=== PATIENT | female | born 1975 | race Caucasian/White ===

== ENCOUNTER 2017-01-20 20:51 | Emergency (ER) | payer OTHER ==
[2017-01-20 21:05] VITALS: TEMP 98.7; BMI 32.3
[2017-01-20] MEDS ORDERED: FAMOTIDINE 20 MG/50 ML IVPB 50 ML IVPB ONE ×2 (21:38→21:53)
[2017-01-20] MEDS ORDERED: PANTOPRAZOLE SODIUM 40 MG in SODIUM CHLORIDE 100 ML IVPB ONE (21:38)
[2017-01-20] MEDS ORDERED: SODIUM CHLORIDE 1,000 ML IV STA (21:38)
--- NOTE | 2017-01-20 21:52 | PDOC ---
History of Present Illness - General Chief Complaint: Palpitations Stated Complaint: PALPITATIONS/SOB/CHEST TIGHTNESS Time Seen by Provider: 01/20/17 20:55 History Source: Patient Exam Limitations: No Limitations - History of Present Illness Initial Comments: 01/20/17 21:48 41yo Female patient w/ PmHx: GERD presents to ED c/o chest tightness, palpitations, and epigastric abd pain starting 3 nights ago. Patient states symptoms feel like heartburn and she has been taking Pepcid po prescribed by her PCP Dr. Todd. Associated SOB. Patient verbalized, " I feel like I worked out for an hr but claudia been resting." She stated she cant seem to catch her breath. Denies CP, Diff breathing, fever, rash, cough, congestion, back pain or any other complaints at this time. LNMP: Current. Presenting Symptoms: Abdominal Pain, Short of Breath, Other (Chest Tightness) Timing/Duration: reports: getting worse Severity/Quality: reports: ingestion, pressure Location: reports: epigastric, abdomen Activities at Onset: reports: rest, no specific activity Prior Chest Pain/Cardiac Workup: reports: No prior chest pain, No prior cardiac workup Modifying Factors: improves with: antacids Nitro Today/Relief: No: no nitro taken today, 0.4 mg x 1, 0.4 mg x 2, 0.4 mg x 3 , 0.4 mg x 4, provided by EMS, provided by ED, provided at home, no relief, mild relief, complete relief Aspirin Received prior to arrival (Core Measure): No: no aspirin today, unknown , 81 mg x 1, 81 mg x 2, 81 mg x 3, 81 mg x 4, 325 mg x 1, provided at home, provided by EMS, provided by ED Past History - Travel Traveled outside of the country in the last 30 days: No Close contact w/someone who was outside of country & ill: No - Past Medical History Allergies/Adverse Reactions: Allergies Allergy/AdvReac Type Severity Reaction Status Date / Time No Known Allergies Allergy Verified 01/20/17 20:59 Home Medications: Ambulatory Orders Pantoprazole Sodium [Protonix -] 40 mg PO BID #14 tablet.ec 01/21/17 - Psycho/Social/Smoking Cessation Hx Anxiety: No Suicidal Ideation: No Smoking Status: No Smoking History: Never smoked Have you smoked in the past 12 months: No Information on smoking cessation initiated: No Hx Alcohol Use: No Drug/Substance Use Hx: No Substance Use Type: None Cardiac Specific PMH - Complaint Specific PMHX Abdominal Aortic Aneurysm: No Angina: No Cardiac Arrhythmia: No Cardiac Stent: No GERD: No Myocardial Infarction: No Pacemaker: No Pulmonary Embolus: No Valvular Heart Disease: No Peripheral Vascular Disease: No Review of Systems - Review of Systems Able to Perform ROS?: Yes Is the patient limited Icelandic proficient: No Constitutional: No: Chills, Fever HEENTM: No: Nose Congestion, Throat Pain, Throat Swelling, Difficulty Swallowing , Mouth Swelling Respiratory: Yes: Shortness of Breath, SOB at Rest. No: Cough, Stridor, Wheezing, Hemoptysis Cardiac (ROS): Yes: Palpitations, Chest Tightness. No: Chest Pain, Edema, Irregular Heart Rate, Lightheadedness, Syncope ABD/GI: No: Constipated, Diarrhea, Nausea, Poor Appetite, Poor Fluid Intake, Vomiting : No: Burning, Dysuria, Flank Pain, Hematuria, Pain Musculoskeletal: No: Back Pain Integumentary: No: Bruising, Erythema, Rash Neurological: No: Headache, Paresthesia, Seizure, Tremors, Weakness, Ataxia All Other Systems: Reviewed and Negative *Physical Exam - Vital Signs Last Vital Signs Temp Pulse Resp BP Pulse Ox 98.7 F 102 H 20 132/93 100 01/20/17 20:59 01/20/17 20:59 01/20/17 20:59 01/20/17 20:59 01/20/17 20:59 - Physical Exam General Appearance: Yes: Nourished, Appropriately Dressed, Mild Distress. No: Apparent Distress HEENT: positive: EOMI, GARY, Normal ENT Inspection, Normal Voice, Symmetrical, TMs Normal, Pharynx Normal Neck: positive: Trachea midline, Normal Thyroid, Supple. negative: Rigid, Stridor, Lymphadenopathy (R), Lymphadenopathy (L) Respiratory/Chest: positive: Lungs Clear, Normal Breath Sounds. negative: Chest Tender, Respiratory Distress, Accessory Muscle Use, Labored Respiration, Rapid RR Cardiovascular: positive: Regular Rhythm, Regular Rate. negative: Edema, JVD, Murmur Gastrointestinal/Abdominal: positive: Normal Bowel Sounds, Tender, Soft, Tenderness (Epigastric). negative: Distended, Guarding, Rebound Musculoskeletal: positive: Normal Inspection. negative: CVA Tenderness, Vertebral Tenderness Extremity: positive: Normal Capillary Refill, Normal Inspection, Normal Range of Motion. negative: Swelling Integumentary: positive: Normal Color, Dry, Warm. negative: Jaundice, Cold, Clammy, Petechiae, Rash Neurologic: positive: medical safety director II-XII NML intact, Fully Oriented, Alert, Normal Mood/ Affect, Normal Response, Motor Strength 5/5 Heart Score/ECG Review - ECG Impressions Normal ECG: Yes Non-specific ST Elevation: No Ischemic Changes: No Bradycardia: No Torsades todd Pointes: No WPW: No Comment:: 01/21/17 00:23 SINUS RHYTHM WITH OCCASIONAL PAC's. ED Treatment Course - LABORATORY CBC & Chemistry Diagram: 01/20/17 21:36 01/20/17 21:36 - ADDITIONAL ORDERS Additional order review: Laboratory Results 01/20/17 01/20/17 01/20/17 21:49 21:36 21:36 D-Dimer < 200 Sodium 141 Potassium 3.7 Chloride 102 Carbon Dioxide 30 D Anion Gap 9 BUN 10 D Creatinine 0.8 D Creat Clearance w eGFR > 60 Random Glucose 104 D Calcium 8.8 Total Bilirubin 0.2 D AST 12 L ALT 25 D Alkaline Phosphatase 76 D Creatine Kinase 73 Troponin I < 0.02 Total Protein 8.0 Albumin 3.7 Total Amylase 67 Lipase 178 Urine Color Yellow Urine Appearance Clear Urine pH 6.0 Ur Specific Dix 1.019 Urine Protein Negative Urine Glucose (UA) Negative Urine Ketones Negative Urine Blood 3+ H Urine Nitrite Negative Urine Bilirubin Negative Urine Urobilinogen Negative Ur Leukocyte Esterase Trace H D Urine RBC 136 Urine WBC 6 Ur Epithelial Cells Rare Urine Mucus Rare Urine HCG, Qual Negative 01/20/17 21:36 RBC 4.27 MCV 70.6 L MCHC 32.1 RDW 18.1 H D MPV 9.1 Neutrophils % 64.2 Lymphocytes % 24.6 D Monocytes % 7.5 Eosinophils % 3.3 D Basophils % 0.4 - Medications Given in the ED: ED Medications Discontinued Medications Generic Name Dose Route Start Last Admin Trade Name Freq PRN Reason Stop Dose Admin Pantoprazole Sodium 40 mg/ 100 mls @ 200 mls/hr 01/20/17 21:38 01/20/17 22:35 Sodium Chloride IVPB 01/20/17 22:07 200 mls/hr ONCE ONE Administration Famotidine/Sodium Chloride 50 mls @ 100 mls/hr 01/20/17 21:38 01/20/17 21:58 Pepcid 20 Mg Premixed Ivpb - IVPB 01/20/17 22:07 100 mls/hr ONCE ONE Administration Sodium Chloride 1,000 mls @ 1,000 mls/hr 01/20/17 21:38 01/20/17 21:58 Normal Saline - IV 01/20/17 22:37 1,000 mls/hr ASDIR STA Administration *DC/Admit/Observation/Transfer Diagnosis at time of Disposition: Gastroesophageal reflux disease Qualifiers: Esophagitis presence: without esophagitis Qualified Code(s): K21.9 - Gastro- esophageal reflux disease without esophagitis - Discharge Dispostion Disposition: HOME Condition at time of disposition: Improved Admit: No - Prescriptions Prescriptions: Pantoprazole Sodium [Protonix -] 40 mg PO BID #14 tablet.ec - Referrals Referrals: STAFF,NOT ON [Primary Care Provider] - Brandt Bauer MD [Staff Physician] - - Patient Instructions Printed Discharge Instructions: DI for Gastroesophageal Reflux Disease (GERD), GERD Diet Additional Instructions: FOLLOW UP WITH YOUR PRIMARY CARE PROVIDER THIS WEEK FOR FURTHER EVALUATION. TAKE MEDICATIONS PRESCRIBED. AVOID ALCOHOL, SPICY FOODS, MOTRIN/IBUPROFEN, GREASY FOODS. ALSO, FOLLOW UP WITH DR. BAUER REGARDING TODAYS VISIT. Print Language: SLOVENIAN - Post Discharge Activity Work/School Note: Back to Work
[2017-01-20] MEDS ORDERED: PANTOPRAZOLE SODIUM 100 ML IVPB ONE (21:53)
[2017-01-20 22:03] LABS: BASOPHIL 0.4 % (0-2.0); EOSINOPHIL 3.3 % (0-4.5); MCH 22.6 pg (25.7-33.7); MCHC 32.1 g/dl (32.0-36.0); MEAN CELL VOLUME 70.6 fl (80-96); MEAN PLT VOLUME 9.1 fl (7.5-11.1); NEUTROPHILS 64.2 % (42.8-82.8); PLATELET COUNT 298 K/MM3 (134-434); RDW 18.1 % (11.6-15.6); WHITE BLOOD COUNT 7.3 K/mm3 (4.0-10.0)
[2017-01-20 22:06] LABS: URINE APPEARANCE CLEAR; URINE BILIRUBIN NEGATIVE (NEGATIVE); URINE BLOOD 3+ (NEGATIVE); URINE COLOR YELLOW; URINE GLUCOSE (UA) NEGATIVE (NEGATIVE); URINE KETONE NEGATIVE (NEGATIVE); URINE LEUK ESTERASE TRACE (NEGATIVE); URINE NITRITE NEGATIVE (NEGATIVE); URINE PROTEIN NEGATIVE (NEGATIVE); URINE UROBILINOGEN NEGATIVE E.U./dl (0.2-1.0)
[2017-01-20 22:10] LABS: URINE MUCUS RARE; URINE RBC 136 /hpf (0-3); URINE WBC 6 /hpf (3-5)
[2017-01-20 22:31] LABS: ALBUMIN 3.7 g/dl (3.4-5.0); AMYLASE 67 U/L (25-115); ANION GAP 9 (8-16); BILIRUBIN,TOTAL 0.2 mg/dL (0.2-1.0); CALCIUM 8.8 mg/dL (8.5-10.1); CO2 30 mmol/L (21-32); CREATININE 0.8 mg/dL (0.55-1.02); GLUCOSE,RANDOM 104 mg/dL (74-106); SGOT/AST 12 U/L (15-37); SGPT/ALT 25 U/L (12-78)
[2017-01-20 22:36] LABS: ALK PHOS 76 U/L (45-117); TROPONIN I < 0.02 ng/ml (0.00-0.05)
[2017-01-21 00:31] VITALS: BP 124/79; PULSE 94
--- NOTE | 2017-01-22 13:34 | EKG ---
Test Reason : Blood Pressure : / mmHG Vent. Rate : 081 BPM Atrial Rate : 081 BPM P-R Int : 148 ms QRS Dur : 076 ms QT Int : 368 ms P-R-T Axes : 043 033 027 degrees QTc Int : 427 ms SINUS RHYTHM WITH PREMATURE VENTRICULAR COMPLEXES WITH ABERRANT CONDUCTION OTHERWISE NORMAL ECG NO PREVIOUS ECGS AVAILABLE Confirmed by ISAIAH WHITE, GIULIA ([id number]) on 01/22/2017 1:34:24 PM Referred By: Confirmed By:GIULIA COLON MD
== END 2017-01-21 00:43 | disposition home or self-care (01) ==
LOC: JER 20:51
PROC: 3E033GC Introduction of Other Therapeutic Substance into Peripheral Vein, Percutaneous Approach (ICD-10-PCS; principal; 2017-01-20)
PROC: 3E033GC Introduction of Other Therapeutic Substance into Peripheral Vein, Percutaneous Approach (ICD-10-PCS; 2017-01-20)
DX: K21.9 Gastro-esophageal reflux disease without esophagitis (principal)
CPT/HCPCS: 36415; 80053; 81003; 81015; 82150; 82550; 83690; 84484; 84703; 85025; 85379; 93005; 93010; 96365; 96368; 99283-25

== ENCOUNTER 2018-06-09 12:28 | Day surgery (SDC) | payer OTHER ==
[2018-05-30 16:10] VITALS: BMI 34.2
[2018-06-09] MEDS ORDERED: MIDAZOLAM HCL 2 MG/2 ML SINGLE DOSE VIAL ONE (13:56)
[2018-06-09] MEDS ORDERED: fentaNYL CITRATE 250 MCG/5 ML VIAL ONE (13:56)
[2018-06-09] MEDS ORDERED: PROPOFOL 20 ML ONE (13:56)
[2018-06-09] MEDS ORDERED: ROCURONIUM BROMIDE 50 MG/5 ML VIAL ONE (13:56)
[2018-06-09] MEDS ORDERED: DEXAMETHASONE SOD PHOSPHATE 4 MG/1 ML VIAL ONE (13:57)
[2018-06-09] MEDS ORDERED: LIDOCAINE HCL/PF 2% SDV 5ML VIAL ONE (13:57)
--- NOTE | 2018-06-09 14:24 | HP ---
History & Physical Update - History History: No Change - Physical Physical: No Change - Assessment Assessment: No Change - Plan Plan: No Change (no changes since last visit on 05/26/18)
[2018-06-09] MEDS ORDERED: BUPIVACAINE HCL/PF (5 MG/ML) 30 ML VIAL IJ ONE ×2 (14:56→15:08)
[2018-06-09] MEDS ORDERED: NEOSTIGMINE METHYLSULFATE 0.5 MG/ML - 10 ML MDV ONE (15:07)
[2018-06-09] MEDS ORDERED: PHENYLEPHRINE HCL 10 MG/1 ML SINGLE DOSE VIAL ONE (15:07)
[2018-06-09] MEDS ORDERED: GLYCOPYRROLATE 0.2 MG/1 ML VIAL ONE (15:08)
[2018-06-09] MEDS ORDERED: MEPERIDINE HCL CARPU-JECT 25 MG/1 ML DISP.SYRIN ONE (15:24)
[2018-06-09] MEDS ORDERED: ACETAMINOPHEN 325 MG TABLET (FP) PO PRN (15:32)
--- NOTE | 2018-06-09 15:34 | OP ---
Operative Note - Note: Operative Date: 06/09/18 Pre-Operative Diagnosis: desires sterilization Operation: laparoscopic b/l salpingectomy Findings: normal b/l tubes and ovaries Post-Operative Diagnosis: Same as Pre-op Surgeon: Queenie Moody Sign Fabricator: Odette Mazariegos Anesthesia: General Specimens Removed: b/l fallopian tubes Estimated Blood Loss (mls): 5 Operative Report Dictated: Yes
[2018-06-09] MEDS ORDERED: KETOROLAC TROMETHAMINE 30 MG/1 ML VIAL ONE (15:36)
[2018-06-09] MEDS ORDERED: KETOROLAC TROMETHAMINE 30 MG/1 ML VIAL IM ONE (15:36)
[2018-06-09] MEDS ORDERED: oxyCODONE HCL 5 MG TABLET PO PRN (15:37)
--- NOTE | 2018-06-09 15:44 | SURG ---
Surgery Supervisor Sign Shop Note Supervisor Sign Shop: Odette Mazariegos PA-C Date of Service: 06/09/18 Diagnosis: desires sterilization Procedure: laparoscopic b/l salpingectomy I was present for the entirety of the operative procedure. For further detail, please refer to operative report. Visit type - Case Type Case Type: Scheduled - Emergency Emergency Visit: No - New patient This patient is new to me today: Yes Date on this admission: 06/09/18
[2018-06-09] MEDS ORDERED: LACTATED RINGERS SOLUTION 1,000 ML IV SCH ×2 (15:45→17:00)
[2018-06-09 15:47] VITALS: TEMP 97.9
[2018-06-09] MEDS ORDERED: ONDANSETRON 4 MG/2 ML VIAL IVPUSH PRN (16:46)
[2018-06-09] MEDS ORDERED: MEPERIDINE HCL CARPU-JECT 25 MG/1 ML DISP.SYRIN IVPUSH ONE (17:15)
[2018-06-09] MEDS ORDERED: oxyCODONE HCL 5 MG TABLET ONE (17:57)
[2018-06-09 19:27] VITALS: BP 102/66; PULSE 60
--- NOTE | 2018-06-11 14:30 | OP ---
DATE OF OPERATION: 06/09/2018 PREOPERATIVE DIAGNOSIS: Multiparity desires permanent sterilization. POSTOPERATIVE DIAGNOSIS: Multiparity desires permanent sterilization. PROCEDURE: Laparoscopic bilateral salpingectomy. SURGEON: Queenie Moody DO SPECIAL DELIVERY MAIL CARRIER: Odette Mazariegos ANESTHESIA: General. ESTIMATED BLOOD LOSS: 5 mL. COMPLICATIONS: None. SPECIMENS: Removed bilateral fallopian tubes. DISPOSITION: Stable to PACU. BRIEF HISTORY AND PROCEDURE: Patient is a 42-year-old female who has been seen in the office with desire for permanent sterilization procedure. The patient was counseled on her options and elected to undergo a laparoscopic bilateral salpingectomy. Consents for the procedure were signed in the office. The patient was admitted to [facility] on June 09, 2018. Consents were reconfirmed. The patient was then taken back to the operating room. She was given general anesthesia and placed in the dorsal lithotomy position, and a Gooden catheter was placed under sterile conditions. She was then prepped and draped in the usual sterile fashion and a hard time-out was performed. A 5-mm skin incision was created in the umbilicus, and a Veress needle was placed intraabdominally. The abdomen was insufflated with CO2 gas. Next, a 5-mm trocar was placed intraabdominally, and the camera was inserted. After confirmation of intraabdominal placement, 2 bilateral lower quadrant 5-mm ports were placed under direct visualization. The left fallopian tube was identified, elevated, and traced to its fimbriated end and dissected off the attachments to the ovary, mesosalpinx, and the uterus using a LigaSure device. This was done without difficulty. The same as repeated with the right fallopian tube. Both fallopian tubes were removed from a 5mm trocar under direct visualization. Surgical sites were noted to be hemostatic after the procedure. Other intraabdominal examination revealed no abnormalities. The trocars were removed under direct visualization. The abdomen was desufflated. The skin was reapproximated using 4-0 Byson suture and skin glue. The Gooden catheter was removed. The patient was awoken from anesthesia and recovering in stable condition in the PACU after the procedure. Sponge, needle and instrument counts were reported as correct after the case. QUEENIE MOODY DO /[id number] MTD
--- NOTE | 2018-06-11 14:47 | PATH ---
Surgical Pathology Report Patient Name: DUANE ORTEZ [facility]. Rec. #: [id number] /Age/Gender: 1975 (Age: 42) / F Account: [id number] Location: [facility] SURGICAL Taken: 06/09/2018 Received: 06/10/2018 Reported: 06/11/2018 Physicians: Queenie Moody M.D. Specimen(s) Received A: RIGHT FALLOPIAN TUBE B: LEFT FALLOPIAN TUBE Clinical History Multiparity, voluntary sterilization Final Diagnosis A. FALLOPIAN TUBE, RIGHT, SALPINGECTOMY: UNREMARKABLE FALLOPIAN TUBE INCLUDING FIMBRIATED END AND FULL LUMINAL PORTION. B. FALLOPIAN TUBE, LEFT, SALPINGECTOMY: FALLOPIAN TUBE WITH PARATUBAL CYSTS. FIMBRIATED END AND FULL LUMINAL PORTION IDENTIFIED. Electronically Signed Lisa Martinez M.D. Gross Description A. Received in formalin labeled "right tube," is a 6 cm in length fimbriated fallopian tube. The outer surface is head-pink and smooth. Sectioning reveals an unremarkable lumen. Line Helper sections are submitted in 2 cassettes as follows: 1-fimbria; 8-ghvab-rwzyivxw of fallopian tube. B. Received in formalin labeled "left tube," is a 5 cm in length fimbriated portion of fallopian tube. The outer surface is head-ibarra and smooth. Sectioning reveals an unremarkable lumen. Line Helper sections are submitted in 2 cassettes as follows: 1-fimbria; 2-cross sections of fallopian tube. /06/10/201806/10/2018
== END 2018-06-09 19:10 | disposition home or self-care (01) ==
LOC: JASU-SURG 12:28 → JASUSAT 12:28 → JASU-SURG 19:10
PROVIDERS: ATTEND Obstetrics & Gynecology
PROC: 0UT74ZZ Resection of Bilateral Fallopian Tubes, Percutaneous Endoscopic Approach (ICD-10-PCS; principal; 2018-06-09 14:00)
DX: Z30.2 Encounter for sterilization (principal)
CPT/HCPCS: 36415; 84703; 86850; 86900; 86901; 88302-TC; 94760

== ENCOUNTER 2018-10-16 01:22 | Emergency (ER) | payer OTHER ==
[2018-10-16 01:34] VITALS: BP 100/46; PULSE 82; TEMP 97.8; BMI 29.0
--- NOTE | 2018-10-16 02:04 | PDOC ---
History of Present Illness - General Chief Complaint: Pain Stated Complaint: ABD PAIN Time Seen by Provider: 10/16/18 02:04 - History of Present Illness Initial Comments: 10/16/18 02:14 The patient is a 43 year old female with no significant PMH who presents for evaluation of abdominal pain, nausea, and vomiting. The patient reports severe epigastric sharp, burning abdominal pain beginning about 11 hours prior to presentation in the ED. She reports associated nausea and multiple episodes of non-bilious, non-bloody vomiting prompting her presentation to the ED for further evaluation. She denies similar symptoms in the past and dose not note any relieving factors. She otherwise denies fevers, chills, SOB, chest pain, or changes with urination or bowel movements. Past History - Past Medical History Allergies/Adverse Reactions: Allergies Allergy/AdvReac Type Severity Reaction Status Date / Time No Known Allergies Allergy Verified 10/16/18 01:34 Home Medications: Ambulatory Orders Famotidine [Pepcid -] 20 mg PO DAILY #14 tablet 10/16/18 Ondansetron [Zofran Odt -] 4 mg SL TID #21 od.tablet 10/16/18 Anemia: No Asthma: No Cancer: No Cardiac Disorders: No CVA: No COPD: No CHF: No Dementia: No Diabetes: No GI Disorders: No Disorders: No HTN: No Hypercholesterolemia: No Liver Disease: No Seizures: No Thyroid Disease: No - Surgical History Abdominal Surgery: Yes (tummy tuck) - Immunization History Immunization Up to Date: No - Suicide/Smoking/Psychosocial Hx Smoking Status: No Smoking History: Never smoked Have you smoked in the past 12 months: No Information on smoking cessation initiated: No Hx Alcohol Use: No Drug/Substance Use Hx: No Substance Use Type: None Review of Systems - Review of Systems Comments:: 10/16/18 02:16 Constitutional: No fevers, chills, fatigue, malaise HEENT: No Rhinorrhea, nasal congestion, visual changes Cardiovascular: No chest pain, syncope, palpitations, lightheadedness Respiratory: No Cough, SOB, Hemoptysis, Gastrointestinal: Abdominal pain, Nausea, vomiting. No Constipation, Diarrhea, Melena Genitourinary: No Dysuria, Frequency, Urgency, Hesitancy, Hematuria, Flank pain Musculoskeletal: No Myalgia, arthralgia Skin: No rashes, itching, bruising, pallor Neurologic: No Headache, Dizziness, Numbness, Weakness, or Tingling Psychiatric: No Hallucinations. No SI or HI *Physical Exam - Vital Signs Last Vital Signs Temp Pulse Resp BP Pulse Ox 97.8 F 82 18 100/46 L 98 10/16/18 01:32 10/16/18 01:32 10/16/18 01:32 10/16/18 01:32 10/16/18 01:32 - Physical Exam Comments: 10/16/18 02:16 General Appearance: Nourished. In Apparent Distress HEENT: No Pharyngeal Erythema, Tonsillar Exudate, Tonsillar Erythema Neck: No Cervical Lymphadenopathy Respiratory/Chest: Lungs Clear, Normal Breath Sounds. No Crackles, Rales, Rhonchi, Wheezing Cardiovascular: Regular Rhythm, Regular Rate. No Murmur, Gallops, Rubs Gastrointestinal/Abdominal: Normal Bowel Sounds, Soft. Epigastric tenderness to palpation. Negative Gray's. No Guarding, Rebound, Musculoskeletal: No CVA Tenderness Extremity: Normal Capillary Refill Integumentary: Normal Color, Dry, Warm Neurologic: Fully Oriented, Alert, Normal Mood/Affect, Normal Response, Moderate Sedation - Procedure Monitoring Vital Signs: Procedure Monitoring Vital Signs Temperature 97.8 F 10/16/18 01:32 Pulse Rate 82 10/16/18 01:32 Respiratory Rate 18 10/16/18 01:32 Blood Pressure 100/46 L 10/16/18 01:32 O2 Sat by Pulse Oximetry (%) 98 10/16/18 01:32 ED Treatment Course - LABORATORY CBC & Chemistry Diagram: 10/16/18 02:20 10/16/18 02:20 Medical Decision Making - Medical Decision Making 10/16/18 02:17 The patient is a 43 year old female with no significant PMH who presents for evaluation of abdominal pain, nausea, and vomiting. Differential includes but is not limited to: Gastritis, Pancreatitis, ACS, UTI, Infectious, Metabolic Derangement. Given the patient's history and physical exam, we will obtain a cbc, cmp, troponin, lipase, ua, urine preg, chest plain film, ekg to evaluate further. We will treat with iv fluids, pepcid, zofran, maalox, tylenol, and continue to monitor and reassess while here in the ED. 12/20/18 04:23 CBC, cmp, troponin, lipase are unremarkable. The patient reports improvement in her symptoms and has a normal non-tender abdominal exam and has tolerated PO intake here in the ED. We are comfortable discharging the patient home with GI follow up on pepcid and zofran. We discussed the results, plan, and return precautions with the patient who voiced understanding and is agreeable with the plan. *DC/Admit/Observation/Transfer Diagnosis at time of Disposition: Abdominal pain Qualifiers: Abdominal location: unspecified location Qualified Code(s): R10.9 - Unspecified abdominal pain - Discharge Dispostion Disposition: HOME Condition at time of disposition: Stable - Prescriptions Prescriptions: Famotidine [Pepcid -] 20 mg PO DAILY #14 tablet Ondansetron [Zofran Odt -] 4 mg SL TID #21 od.tablet - Referrals Referrals: Brandt Bauer MD [Staff Physician] - - Patient Instructions Printed Discharge Instructions: DI for Gastritis Additional Instructions: Please return to the ER if you experience concerning or worsening symptoms including worsening difficulty breathing, weakness, or chest pain, abdominal pain, fevers, vomiting. Your lab results were normal here in the ER. We have sent a prescription to your pharmacy for anti-nausea and anti-acid medication that you should take as needed to help resolve your symptoms. Please call to schedule a follow up appointment with your primary care provider and our GI specialist Dr. Bauer within 2-3 days to discuss your ER visit and further management of your symptoms. - Post Discharge Activity
[2018-10-16] MEDS ORDERED: FAMOTIDINE 20 MG/50 ML IVPB 20 MG/50 ML MG IVPB ONE ×2 (02:05→02:23)
[2018-10-16] MEDS ORDERED: ONDANSETRON 4 MG/2 ML VIAL IVPUSH ONE ×2 (02:05→04:07)
[2018-10-16] MEDS ORDERED: SODIUM CHLORIDE 1,000 ML IV STA (02:05)
[2018-10-16] MEDS ORDERED: MAG HYDROX/AL HYDROX/SIMETH 30 ML UNIT-DOSE CUP PO ONE (02:06)
[2018-10-16] MEDS ORDERED: ACETAMINOPHEN 1000 MG/100 ML VIAL (NON FORMULARY) IVPB ONE (02:10)
[2018-10-16] MEDS ORDERED: ONDANSETRON 4 MG/2 ML VIAL ONE ×2 (02:22→04:11)
[2018-10-16] MEDS ORDERED: MAG HYDROX/AL HYDROX/SIMETH 30 ML UNIT-DOSE CUP ONE (02:22)
[2018-10-16] MEDS ORDERED: ACETAMINOPHEN INJECTION 100 ML IVPB ONE (02:22)
[2018-10-16 02:26] LABS: BASO % 0.1 % (0-2.0); EOS % 0.8 % (0-4.5); HEMATOCRIT 36.5 % (32.4-45.2); LYMPH % 4.6 % (8-40); MCH 29.7 pg (25.7-33.7); MCHC 35.5 g/dl (32.0-36.0); MEAN CELL VOLUME 83.8 fl (80-96); MEAN PLT VOLUME 9.3 fl (7.5-11.1); MONO % 6.1 % (3.8-10.2); NEUT % 88.4 % (42.8-82.8); PLATELET COUNT 249 K/MM3 (134-434); RBC 4.36 M/mm3 (3.60-5.2); RDW 13.6 % (11.6-15.6); WHITE BLOOD COUNT 10.3 K/mm3 (4.0-10.0)
[2018-10-16 03:07] LABS: ALBUMIN 3.6 g/dl (3.4-5.0); ALK PHOS 82 U/L (45-117); ANION GAP 7 MMOL/L (8-16); BILIRUBIN,TOTAL 0.6 mg/dL (0.2-1); BLOOD UREA NITROGEN 11 mg/dL (7-18); CALCIUM 8.7 mg/dL (8.5-10.1); CHLORIDE 103 mmol/L (98-107); CO2 27 mmol/L (21-32); CREATININE 0.7 mg/dL (0.55-1.3); GLUCOSE,RANDOM 107 mg/dL (74-106); LIPASE 148 U/L (73-393); POTASSIUM 3.8 mmol/L (3.5-5.1); SGOT/AST 21 U/L (15-37); SGPT/ALT 31 U/L (13-61); SODIUM 137 mmol/L (136-145); TOT PROT 8.2 g/dl (6.4-8.2)
[2018-10-16] MEDS ORDERED: PANTOPRAZOLE SODIUM 40 MG VIAL IVPUSH ONE (04:07)
[2018-10-16] MEDS ORDERED: PANTOPRAZOLE SODIUM 40 MG VIAL IVPB ONE (04:11)
[2018-10-16] MEDS ORDERED: PANTOPRAZOLE SODIUM 40 MG/100 ML BAG IVPB ONE (04:11)
[2018-10-16 04:29] LABS: URINE APPEARANCE CLEAR; URINE BILIRUBIN NEGATIVE (<2.0 mg/dL); URINE COLOR YELLOW; URINE GLUCOSE (UA) NEGATIVE (NEGATIVE); URINE KETONE 2+ (NEGATIVE); URINE LEUK ESTERASE NEGATIVE (NEGATIVE); URINE NITRITE NEGATIVE (NEGATIVE); URINE PROTEIN 2+ (NEGATIVE); URINE UROBILINOGEN NEGATIVE mg/dL (0.2-1.0)
[2018-10-16 04:31] LABS: EPI CELLS RARE /HPF (FEW); HCG,QUALITATIVE URINE Negative; URINE MUCUS RARE
[2018-10-16] MEDS ORDERED: NAPROXEN 500 MG TABLET (FP) ONE (04:33)
--- NOTE | 2018-10-16 04:50 | PDOC ---
Attending Attestation - Resident Resident Name: MarisaKaliPatricio - ED Attending Attestation I have performed the following: I have examined & evaluated the patient, The case was reviewed & discussed with the resident, I agree w/resident's findings & plan, Exceptions are as noted - HPI HPI: 10/16/18 04:48 43F here with burning epigastric px a/w nbnb emesis for most of the day - Physicial Exam PE: 10/16/18 04:49 Agree with exam as documented by resident - Medical Decision Making 10/16/18 04:49 Abd is soft, acute abdomen less likely, consider gastritis symptomatic care re-eval dispo per clinical course
[2018-10-16] MEDS ORDERED: METOCLOPRAMIDE HCL 10 MG TABLET (FP) PO ONE ×2 (05:33→05:36)
--- NOTE | 2018-10-16 12:02 | EKG ---
Test Reason : Blood Pressure : / mmHG Vent. Rate : 074 BPM Atrial Rate : 074 BPM P-R Int : 132 ms QRS Dur : 074 ms QT Int : 394 ms P-R-T Axes : -13 045 012 degrees QTc Int : 437 ms NORMAL SINUS RHYTHM NORMAL ECG WHEN COMPARED WITH ECG OF 20-JAN-2017 21:08, PREMATURE VENTRICULAR COMPLEXES ARE NO LONGER PRESENT ABERRANT CONDUCTION IS NO LONGER PRESENT Confirmed by BOBBY WHITE, JENNY ([id number]) on 10/16/2018 12:02:14 PM Referred By: Confirmed By:JENNY ROSALES MD
== END 2018-10-16 05:56 | disposition home or self-care (01) ==
LOC: JER 01:22
PROC: 3E033GC Introduction of Other Therapeutic Substance into Peripheral Vein, Percutaneous Approach (ICD-10-PCS; principal; 2018-10-16)
PROC: 3E033GC Introduction of Other Therapeutic Substance into Peripheral Vein, Percutaneous Approach (ICD-10-PCS; 2018-10-16)
PROC: 3E033GC Introduction of Other Therapeutic Substance into Peripheral Vein, Percutaneous Approach (ICD-10-PCS; 2018-10-16)
PROC: 3E033NZ Introduction of Analgesics, Hypnotics, Sedatives into Peripheral Vein, Percutaneous Approach (ICD-10-PCS; 2018-10-16)
PROC: 3E033GC Introduction of Other Therapeutic Substance into Peripheral Vein, Percutaneous Approach (ICD-10-PCS; 2018-10-16)
DX: R10.9 Unspecified abdominal pain (principal)
CPT/HCPCS: 36415; 71045-TC-FY; 80053; 81003; 81015; 82550; 83690; 84484; 84703; 85025; 87086; 93005; 93010; 99283-25; J0131; J7030

== ENCOUNTER 2018-11-26 05:22 | Day surgery (SDC) | payer OTHER ==
[2018-11-25 09:40] VITALS: BMI 33.9
--- NOTE | 2018-11-26 07:08 | HP ---
History & Physical Update - History History: No Change - Physical Physical: No Change - Assessment Assessment: No Change - Plan Plan: No Change (Agree with H&P from 11/24 - AUB, for hysteroscopy, D&C, polypectomy vs. myomectomy)
[2018-11-26] MEDS ORDERED: MIDAZOLAM HCL 2 MG/2 ML SINGLE DOSE VIAL ONE (09:03)
[2018-11-26] MEDS ORDERED: DEXAMETHASONE SOD PHOSPHATE 4 MG/1 ML VIAL ONE (09:03)
[2018-11-26] MEDS ORDERED: LIDOCAINE HCL/PF 2% SDV 5ML VIAL ONE (09:03)
[2018-11-26] MEDS ORDERED: PROPOFOL 20 ML ONE (09:03)
[2018-11-26] MEDS ORDERED: LACTATED RINGERS SOLUTION 1,000 ML IV SCH ×2 (10:15→14:00)
[2018-11-26] MEDS ORDERED: ONDANSETRON 4 MG/2 ML VIAL IVPUSH PRN (13:47)
[2018-11-26] MEDS ORDERED: oxyCODONE HCL 5 MG TABLET PO PRN ×2 (13:47)
[2018-11-26] MEDS ORDERED: oxyCODONE HCL 5 MG TABLET ONE (15:44)
[2018-11-26 17:39] VITALS: BP 119/55; PULSE 85; TEMP 98.3
--- NOTE | 2018-11-28 10:56 | PATH ---
Surgical Pathology Report Patient Name: DUANE ORTEZ [facility]. Rec. #: [id number] /Age/Gender: 1975 (Age: 43) / F Account: [id number] Location: [facility] SURGICAL Taken: 11/26/2018 Received: 11/27/2018 Reported: 11/28/2018 Physicians: Queenie Moody M.D. Specimen(s) Received ENDOMETRIAL CURETTINGS Clinical History Abnormal uterine bleeding Final Diagnosis ENDOMETRIAL CURETTINGS: FRAGMENTS OF PROLIFERATIVE ENDOMETRIUM. SEPARATE BENIGN ENDOCERVICAL TISSUE WITH SQUAMOUS METAPLASIA. Electronically Signed Dustin Downs M.D. Gross Description Received in formalin labeled "endometrial curettings," is a 3.5 x 3.0 x 0.3 cm aggregate of head-brown soft tissue fragments admixed with blood clot. The formalin and filtered and the specimen is entirely submitted in 2 cassettes. DL/11/27/2018 saudi11/27/2018
--- NOTE | 2018-12-03 07:07 | OP ---
Operative Note - Note: Operative Date: 11/26/18 ([id number]) Pre-Operative Diagnosis: AUB, cervical polyp Operation: diagnostic hysteroscopy. suction D&C. polypectomy Findings: intrauterine polypoid tissue Post-Operative Diagnosis: Same as Pre-op Surgeon: Queenie Moody Anesthesiologist/BIRTH CERTIFICATE CLERK: Pedro Luis Jimenez Anesthesia: General (with LMA) Specimens Removed: endometrial curettings, endometrial polyp Estimated Blood Loss (mls): 5 Operative Report Dictated: Yes
--- NOTE | 2018-12-03 07:55 | OP ---
DATE OF OPERATION: 11/26/2018 PREOPERATIVE DIAGNOSIS: Abnormal uterine bleeding. POSTOPERATIVE DIAGNOSIS: Abnormal uterine bleeding, with intrauterine polyp. PROCEDURE PERFORMED: Diagnostic hysteroscopy, suction dilatation and curettage. SURGEON: Queenie Kurtz DO ANESTHESIA: ARTURO Jimenez given LMA anesthesia. COMPLICATIONS: None. SPECIMENS REMOVED: Endometrial curettings. COUNTS: Sponge and instrument count correct. DISPOSITION: Stable to PACU. ESTIMATED BLOOD LOSS: 5 mL. INDICATIONS FOR PROCEDURE: The patient is a 43-year-old female who had been seen in the office complaining of heavy, long periods and on ultrasound was found to have a possible intracervical polyp. The patient was counseled on her options and elected to undergo a hysteroscopy, dilatation and curettage procedure. DESCRIPTION OF PROCEDURE: The patient was admitted to [facility] on November 26, 2018. Consents for the procedure were signed in the office prior and reconfirmed upon admission. The patient was then taken back to the operating room, and placed in the dorsal lithotomy position, given anesthesia by Pedro Luis Jimenez via LMA. A hard time-out was performed. A speculum was placed inside the vagina. The anterior lip of the cervix was grasped with a tenaculum, and the cervix was dilated to accommodate a diagnostic hysteroscope, which was advanced to the fundus of the uterus. Bilateral tubal ostia were noted. Significant intrauterine polypoid tissue was appreciated, which was removed with a sharp curettage, as well as suction curettage on all 4 crain of the uterus. The final pass of the hysteroscope revealed no evidence of uterine perforation and removal of all the polypoid tissue. All the instruments were removed from the vagina. Sponge and instrument counts were reported to be correct. The patient tolerated the procedure well and was recovering in stable condition in the PACU after the procedure. QUEENIE KURTZ DO /[id number] MTDD
== END 2018-11-26 17:30 | disposition home or self-care (01) ==
LOC: JASU-SURG 05:22
PROVIDERS: ATTEND Obstetrics & Gynecology
PROC: 0UDB7ZX Extraction of Endometrium, Via Natural or Artificial Opening, Diagnostic (ICD-10-PCS; principal; 2018-11-26 10:30)
PROC: 0UJD8ZZ Inspection of Uterus and Cervix, Via Natural or Artificial Opening Endoscopic (ICD-10-PCS; 2018-11-26 10:30)
DX: N93.9 Abnormal uterine and vaginal bleeding, unspecified (principal); N84.0 Polyp of corpus uteri
CPT/HCPCS: 88305-TC; 94760

== ENCOUNTER 2019-03-12 12:44 | Emergency (ER) | payer OTHER ==
[2019-03-12] MEDS ORDERED: ACETAMINOPHEN 1000 MG/100 ML VIAL (NON FORMULARY) IVPB ONE (12:46)
[2019-03-12 12:49] VITALS: TEMP 97.7; BMI 32.3
[2019-03-12] MEDS ORDERED: ACETAMINOPHEN INJECTION 100 ML IVPB ONE (13:04)
--- NOTE | 2019-03-12 13:13 | PDOC ---
History of Present Illness - General Chief Complaint: Pain, Acute Stated Complaint: RIGHT ABD PAIN Time Seen by Provider: 03/12/19 12:45 - History of Present Illness Initial Comments: 03/12/19 13:11 43yo F A2 with no PMH, tubal ligation 05/2018, suction D&C/polypectomy 2018 presents with 2 week history of pelvic pain. Reports pain begins in LLQ and radiates to RLQ but pain is worst over suprapubic region. Had TVUS and transabdominal US with Dr. Moody 2 weeks ago for the pain that revealed a fibroid. Denies associated N/V/D, dysuria, hematuria, frequency, vaginal discharge. Denies hx STI, sexually active with only. Presented today as pain became worse over last 2 days. Reports since November, her menstrual cycles of 9 days became at times 18 days long with mostly spotting on those days. LMP 5/6, states no vaginal bleeding in last week however. No treatments tried for pain. Denies fevers, chills, headache, weakness/numbness, cp, sob, LE edema, rashes. Past History - Past Medical History Allergies/Adverse Reactions: Allergies Allergy/AdvReac Type Severity Reaction Status Date / Time No Known Allergies Allergy Verified 03/12/19 12:45 Home Medications: Ambulatory Orders Naproxen 500 mg PO BID PRN #14 tablet 03/12/19 Omeprazole 20 mg PO ASDIR 03/12/19 Anemia: No Asthma: No Cancer: No Cardiac Disorders: No CVA: No COPD: No CHF: No Dementia: No Diabetes: No GI Disorders: No Disorders: No HTN: No Hypercholesterolemia: No Liver Disease: No Seizures: No Thyroid Disease: No - Surgical History Abdominal Surgery: Yes (stephanie muller) - Immunization History Immunization Up to Date: No - Suicide/Smoking/Psychosocial Hx Smoking Status: No Smoking History: Never smoked Have you smoked in the past 12 months: No Hx Alcohol Use: No Drug/Substance Use Hx: No Substance Use Type: None Review of Systems - Review of Systems Comments:: 03/12/19 13:32 GENERAL/CONSTITUTIONAL: No fever or chills. No weakness. HEAD, EYES, EARS, NOSE AND THROAT: No change in vision. No ear pain or discharge. No sore throat. GASTROINTESTINAL: No nausea, vomiting, diarrhea or constipation. GENITOURINARY: No dysuria, frequency, or change in urination. +pelvic pain CARDIOVASCULAR: No chest pain or shortness of breath. RESPIRATORY: No cough, wheezing, or hemoptysis. MUSCULOSKELETAL: No joint or muscle swelling or pain. No neck or back pain. SKIN: No rash NEUROLOGIC: No headache, vertigo, loss of consciousness, or change in strength/ sensation. ENDOCRINE: No increased thirst. No abnormal weight change. HEMATOLOGIC/LYMPHATIC: No anemia, easy bleeding, or history of blood clots. ALLERGIC/IMMUNOLOGIC: No hives or skin allergy. *Physical Exam - Vital Signs Last Vital Signs Temp Pulse Resp BP Pulse Ox 97.7 F 82 16 123/72 100 03/12/19 12:44 03/12/19 12:44 03/12/19 12:44 03/12/19 12:44 03/12/19 12:44 - Physical Exam Comments: 03/12/19 13:33 GENERAL: Awake, alert, and fully oriented, in no acute distress HEAD: No signs of trauma EYES: PERRLA, EOMI, sclera anicteric, conjunctiva clear ENT: Nares patent, oropharynx clear without exudates. Moist mucosa NECK: Normal ROM, supple, no lymphadenopathy, JVD, or masses LUNGS: Breath sounds equal, clear to auscultation bilaterally. No wheezes, and no crackles HEART: Regular rate and rhythm, normal S1 and S2, no murmurs, rubs or gallops ABDOMEN: Soft, +suprapubic ttp, mild RLQ ttp, no LLQ ttp, no tenderness over Mcburneys point, normoactive bowel sounds. No guarding, no rebound. No masses : normal external genitalia, os closed, no CMT. +midline ttp, no R adnexal or L adnexal ttp. No blood or discharge in vault EXTREMITIES: Normal range of motion, no edema. No cords, erythema, or tenderness. WWP NEUROLOGICAL: Normal speech, cranial nerves intact, equal strength and sensation b/l SKIN: Warm, Dry, normal turgor, no rashes or lesions noted. ED Treatment Course - LABORATORY CBC & Chemistry Diagram: 03/12/19 12:50 03/12/19 13:03 - Medications Given in the ED: ED Medications Discontinued Medications Generic Name Dose Route Start Last Admin Trade Name Freq PRN Reason Stop Dose Admin Acetaminophen 1,000 mg 03/12/19 12:46 03/12/19 13:06 Ofirmev Injection - IVPB 03/12/19 12:47 1,000 mg ONCE ONE Administration Medical Decision Making - Medical Decision Making 03/12/19 13:42 43yo F hx tubal ligation, polypectomy, fibroids, metorrhagia presents with 2 weeks of progressive pelvic pain, radiating from suprapubic to RLQ Vitals wnl Exam with suprapubic ttp and midline ttp on pelvic exam US done 2 weeks ago reportedly with fibroids DDx includes UTI vs fibroid pain vs endometriosis vs appendicitis vs diverticulitis Plan for labs, UA, UPT, CTAP, discuss with hanane Sierraxs control and reassess 03/12/19 15:[address] Moody, US 2 weeks ago showed a small 2cm fibroid in its greatest dimension, no ovarian cysts at the time 03/12/19 16:02 CTAP with 4.3 x4.7cm R ovarian cyst. No clinical evidence of torsion, pt feels better after toradol No evidence of appendicitis or TOA - no vag d/c, fevers, white count, and pt is low risk for STIs Plan for pt to f/u with Dr. Moody within 1 week NAproxen for pain control Clinically stable for DC home I discussed the physical exam findings, ancillary test results and final diagnoses with the patient. I answered all of the patient's questions. The patient was satisfied with the care received and felt comfortable with the discharge plan and treatment plan. The patient will call their primary care physician within 24 hours to arrange follow-up and will return to the Emergency Department with any new, persistent or worsening symptoms. *DC/Admit/Observation/Transfer Diagnosis at time of Disposition: Abdominal pain, Ovarian cyst, Pelvic pain - Discharge Dispostion Disposition: HOME Condition at time of disposition: Improved Decision to Admit order: No - Prescriptions Prescriptions: Naproxen 500 mg PO BID PRN #14 tablet PRN Reason: Pain - Referrals - Patient Instructions Printed Discharge Instructions: DI for Ovarian Cyst Additional Instructions: Follow up with Dr. Moody within 1 week Take naproxen as needed for pain. If you are taking naproxen, do not take motrin , advil, ibuprofen or any other NSAIDs. You may take tylenol if naproxen is not controlling your pain. Return to the emergency department if you have any new, worsening, or concerning symptoms such as sudden worsening abdominal pain - Post Discharge Activity - Attestations Physician Attestion: 03/12/19 16:13 I, Dr. Isa Allison MD, attest that this document has been prepared under my direction and personally reviewed by me in its entirety. I further attest, that it accurately reflects all work, treatment, procedures and medical decision -making performed by me.
[2019-03-12 13:30] LABS: ALBUMIN 3.9 g/dl (3.4-5.0); BILIRUBIN,TOTAL 0.4 mg/dl (0.2-1); CREATININE 0.6 mg/dl (0.55-1.3); POTASSIUM 4.2 mmol/L (3.5-5.1); TOT PROT 8.2 g/dl (6.4-8.2)
[2019-03-12 13:54] LABS: BASO % 0.9 % (0-2.0); EOS % 3.2 % (0-4.5); HEMATOCRIT 32.7 % (32.4-45.2); HEMOGLOBIN 10.8 GM/dl (10.7-15.3); LYMPH % 27.1 % (8-40); MCH 26.6 pg (25.7-33.7); MCHC 32.9 g/dl (32.0-36.0); MEAN CELL VOLUME 80.8 fl (80-96); MEAN PLT VOLUME 9.9 fl (7.5-11.1); MONO % 8.7 % (3.8-10.2); NEUT % 60.1 % (42.8-82.8); PLATELET COUNT 338 K/MM3 (134-434); RBC 4.05 M/mm3 (3.60-5.2); RDW 14.5 % (11.6-15.6)
[2019-03-12] MEDS ORDERED: KETOROLAC TROMETHAMINE 15 MG/ML VIAL ONE (14:11)
[2019-03-12] MEDS ORDERED: KETOROLAC TROMETHAMINE 15 MG/ML VIAL IVPUSH ONE (14:20)
[2019-03-12 16:22] VITALS: BP 110/68; PULSE 70
== END 2019-03-12 16:23 | disposition home or self-care (01) ==
LOC: FER 12:44
DX: N83.209 Unspecified ovarian cyst, unspecified side (principal); R10.2 Pelvic and perineal pain
CPT/HCPCS: 36415; 74177-TC; 80053; 81003; 81015; 84703; 85025; 87086; 99282-25; J0131

== ENCOUNTER 2019-09-21 20:36 | Emergency (ER) | payer OTHER ==
[2019-09-21 20:44] VITALS: BP 129/76; PULSE 95; TEMP 98.6; BMI 29.2
[2019-09-21] MEDS ORDERED: KETOROLAC TROMETHAMINE 60 MG/2 ML VIAL IM ONE (21:17)
[2019-09-21 21:20] LABS: EPITHELIAL CELLS MODERATE /hpf
[2019-09-21] MEDS ORDERED: KETOROLAC TROMETHAMINE 60 MG/2 ML VIAL ONE (21:22)
--- NOTE | 2019-09-22 01:21 | PDOC ---
Documentation entered by Gallo Velasquez SCRIBE, acting as scribe for Kay Ugalde MD. Kay Ugalde MD: This documentation has been prepared by the Ron savage Aiswarya, SCRIBE, under my direction and personally reviewed by me in its entirety. I confirm that the documentation accurately reflects all work, treatment, procedures, and medical decision making performed by me. History of Present Illness - General Chief Complaint: Pain, Acute Stated Complaint: LEFT FLANK PAIN ON AND OFF X 2 WEEKS Time Seen by Provider: 09/21/19 20:46 History Source: Patient Exam Limitations: No Limitations - History of Present Illness Initial Comments: 09/21/19 21:42 The patient is a 43 year old female, with no significant PMH, who presents to the emergency department with back pain that began 2 weeks ago. The patient states the intermittent burning pain is located to the left posterior chest wall extending to the left flank. She states pain is exacerbated with movement, twisting, bending and deep inspiration, no medication was taken. The patient denies chest pain, shortness of breath, headache and dizziness. Denies any recent surgeries, long trips or blood clots. Denies fever, chills, nausea, vomit , diarrhea and constipation.Denies dysuria, frequency, urgency and hematuria. Allergies: NKDA Past surgical history: stephanie muller Social history: None reported PCP: None reported Past History - Past Medical History Allergies/Adverse Reactions: Allergies Allergy/AdvReac Type Severity Reaction Status Date / Time No Known Allergies Allergy Verified 09/21/19 20:38 Home Medications: Ambulatory Orders Diclofenac Sodium [Voltaren -] 75 mg PO BID PRN #14 tablet. 09/21/19 Oxycodone HCl/Acetaminophen [Percocet 5-325 mg Tablet] 1 - 2 tab PO Q6H PRN #12 tab MDD 4 tabs 09/21/19 Tizanidine HCl [Zanaflex (Nf) -] 4 mg PO TID PRN #12 tablet 09/21/19 Anemia: No Asthma: No Cancer: No Cardiac Disorders: No CVA: No COPD: No CHF: No Dementia: No Diabetes: No GI Disorders: No Disorders: No HTN: No Hypercholesterolemia: No Liver Disease: No Seizures: No Thyroid Disease: No - Surgical History Abdominal Surgery: Yes (stephanie muller) - Immunization History Immunization Up to Date: No - Psycho Social/Smoking Cessation Hx Smoking Status: No Smoking History: Never smoked Have you smoked in the past 12 months: No Information on smoking cessation initiated: No Hx Alcohol Use: No Drug/Substance Use Hx: No Substance Use Type: None Review of Systems - Review of Systems Able to Perform ROS?: Yes Comments:: 09/21/19 21:42 GENERAL/CONSTITUTIONAL: No fever or chills. No weakness. HEAD, EYES, EARS, NOSE AND THROAT: No change in vision. No ear pain or discharge. No sore throat. CARDIOVASCULAR: No chest pain or shortness of breath. RESPIRATORY: No cough, wheezing, or hemoptysis. GASTROINTESTINAL: No nausea, vomiting, diarrhea or constipation. GENITOURINARY: No dysuria, frequency, or change in urination. MUSCULOSKELETAL: +left flank pain. No joint or muscle swelling or pain. No neck. SKIN: No rash NEUROLOGIC: No headache, vertigo, loss of consciousness, or change in strength/ sensation. ENDOCRINE: No increased thirst. No abnormal weight change. HEMATOLOGIC/LYMPHATIC: No anemia, easy bleeding, or history of blood clots. ALLERGIC/IMMUNOLOGIC: No hives or skin allergy. *Physical Exam - Vital Signs Last Vital Signs Temp Pulse Resp BP Pulse Ox 98.6 F 95 H 18 129/76 100 09/21/19 20:39 09/21/19 20:39 09/21/19 20:39 09/21/19 20:39 09/21/19 20:39 - Physical Exam Comments: 09/21/19 21:43 GENERAL: Awake, alert, and fully oriented, in no acute distress HEAD: No signs of trauma EYES: PERRLA, EOMI, sclera anicteric, conjunctiva clear LUNGS: Breath sounds equal, clear to auscultation bilaterally. No wheezes, and no crackles HEART: Regular rate and rhythm, normal S1 and S2, no murmurs, rubs or gallops EXTREMITIES: +left sided back pain. +Generalized mild tenderness on palpation to the left posterior chest wall extended to the left flank. No edema, ecchymosis or midline spine cord tenderness present. No crepitus or step offs. NEUROLOGICAL: Cranial nerves II through XII grossly intact. Normal speech, normal gait SKIN: Warm, Dry, normal turgor, no rashes or lesions noted. ED Treatment Course - ADDITIONAL ORDERS Additional order review: Laboratory Results 09/21/19 09/21/19 20:45 20:45 Urine Color Yellow Urine Appearance Cloudy Urine pH 6.0 Urine Protein 1+ H Urine Glucose (UA) Negative Urine Ketones Negative Urine Blood Trace-intact Urine Nitrite Negative Urine Bilirubin 1+ H Urine Urobilinogen 0.2 Ur Leukocyte Esterase Negative Urine RBC 2-5 Urine WBC 0-2 Ur Transition Epith Cell Moderate Urine Bacteria Moderate Urine HCG, Qual Negative - Medications Given in the ED: ED Medications Discontinued Medications Generic Name Dose Route Start Last Admin Trade Name Freq PRN Reason Stop Dose Admin Ketorolac Tromethamine 60 mg 09/21/19 21:17 09/21/19 21:21 Toradol Injection - IM 09/21/19 21:18 60 mg ONCE ONE Administration ED Progress Note - Progress Note Progress Note: As noted above, this 43-year-old woman with a history of scoliosis and intermittent back pain presents with 1 month history of left-sided posterior thoracic burning type pain (lower chest wall/flank area). Pain is worse with movement and with certain postures (for example, standing straight; pain is somewhat alleviated by hunching her shoulders over). No known history of trauma or overuse. She remembers similar pain in this area few years ago that resolved spontaneously. She has been referred by her doctors to pain management practice as well as physical therapy. Pain is worsened with deep breathing. No dysuria/no urinary frequency urgency/no hematuria. She has no significant risk factors for DVT/PE. She denies cough or shortness of breath. Exam is noted. No CVA/flank tenderness present. Patient's tenderness is confined to her lower posterior left chest wall Differential diagnosis includes renal colic, chest wall/flank strain or contusion, intrathoracic pathology Urinalysis performed: Negative nitrite/LE; microscopic 0-2 WBC/2-5 RBCs/many epithelial cells/many bacteria; likely contaminated specimen Although likely of musculoskeletal origin, because patient has pleuritic quality of her pain, chest x-ray will be performed to evaluate for pleural effusion/masses/pneumonia. PGU negative Toradol 60 mg IM administered. Chest x-ray PA and lateral performed: Preliminary interpretationno evidence of acute disease Patient reports minimal relief of her pain after Toradol 60 mg IM Patient states that she has had codeine and oxycodone (Percocet) in the past without side effects, given occasionally for severe back pain. [facility] controlled substance database search performed (reference #[id number]): Patient has no recent prescriptions for controlled substances. Percocet 5/325, 2 tablets given to the patient for analgesia After approximately half hour, patient is beginning to have relief of her pain. Prescriptions for diclofenac 75 mg twice a day; tizanidine 4 mg up to 3 times a day as needed for muscle spasm; Percocet 5/325 up to 3 tablets a day as needed for severe pain (#12; small prescription written) She should return to the ER if she has persisting, severe pain. She should plan on following up with pain management practice as previously recommended; also, she should plan on following up with physical therapy, also previously recommended Discharge - Discharge Information Problems reviewed: Yes Clinical Impression/Diagnosis: Thoracic back pain Qualifiers: Chronicity: acute Back pain laterality: left Qualified Code(s): M54.6 - Pain in thoracic spine Condition: Stable Disposition: HOME - Additional Discharge Information Prescriptions: Diclofenac Sodium [Voltaren -] 75 mg PO BID PRN #14 tablet. PRN Reason: Back Pain Oxycodone HCl/Acetaminophen [Percocet 5-325 mg Tablet] 1 - 2 tab PO Q6H PRN #12 tab MDD 4 tabs PRN Reason: Back Pain Tizanidine HCl [Zanaflex (Nf) -] 4 mg PO TID PRN #12 tablet PRN Reason: Muscle Spasms Prescription Drug Monitoring Program (I-STOP) results: I-STOP reviewed and no issues identified - Follow up/Referral - Patient Discharge Instructions Patient Printed Discharge Instructions: Thoracic Back Pain Additional Instructions: Diclofenac 75 mg twice a day (anti-inflammatory); take with food Tizanidine 4 mg up to 3 times a day as needed for muscle spasms Percocet 5/325 1 to 2 tablets as needed for severe pain (do not use if you need to be alert) Local warmth to area of pain Return to ER if you have more severe pain, shortness of breath or cough Follow-up with pain management doctor and physical therapy as previously recommended - Post Discharge Activity
== END 2019-09-21 23:41 | disposition home or self-care (01) ==
LOC: FER 20:36
PROC: 3E0233Z Introduction of Anti-inflammatory into Muscle, Percutaneous Approach (ICD-10-PCS; principal; 2019-09-21)
DX: M54.6 Pain in thoracic spine (principal)
CPT/HCPCS: 71046-TC-FY; 81003; 81015; 84703; 87086; 99282-25

== ENCOUNTER 2020-11-28 09:00 | Day surgery (SDC) | payer OTHER ==
[2020-11-25 08:26] VITALS: BMI 35.9
[2020-11-28] MEDS ORDERED: SUCCINYLCHOLINE CHLORIDE 200 MG/10 ML SYRINGE ONE (13:38)
[2020-11-28] MEDS ORDERED: MIDAZOLAM HCL 2 MG/2 ML SINGLE DOSE VIAL ONE (13:38)
[2020-11-28] MEDS ORDERED: PROPOFOL 20 ML ONE (13:38)
[2020-11-28] MEDS ORDERED: ONDANSETRON 4 MG/2 ML VIAL IVPUSH PRN (13:52)
[2020-11-28] MEDS ORDERED: PROMETHAZINE HCL 25 MG/1 ML VIAL IVPUSH PRN (13:52)
[2020-11-28] MEDS ORDERED: oxyCODONE HCL 5 MG TABLET PO PRN (13:52)
[2020-11-28] MEDS ORDERED: LACTATED RINGERS SOLUTION 1,000 ML IV SCH (14:00)
[2020-11-28] MEDS ORDERED: LIDOCAINE HCL/PF 2% SDV 5ML VIAL ONE (14:03)
[2020-11-28] MEDS ORDERED: DEXAMETHASONE SOD PHOSPHATE 4 MG/1 ML VIAL ONE (14:03)
[2020-11-28] MEDS ORDERED: ONDANSETRON 4 MG/2 ML VIAL ONE (14:03)
[2020-11-28] MEDS ORDERED: KETOROLAC TROMETHAMINE 30 MG/1 ML VIAL ONE (15:46)
[2020-11-28] MEDS ORDERED: KETOROLAC TROMETHAMINE 30 MG/1 ML VIAL IVPUSH ONE ×2 (15:46→15:49)
[2020-11-28 17:07] VITALS: BP 104/63; PULSE 64; TEMP 96.9
[2020-11-28] MEDS ORDERED: oxyCODONE HCL 5 MG TABLET ONE (17:41)
== END 2020-11-28 18:18 | disposition home or self-care (01) ==
LOC: JASU-SURG 09:00
PROVIDERS: ATTEND Obstetrics & Gynecology
PROC: 0UJD8ZZ Inspection of Uterus and Cervix, Via Natural or Artificial Opening Endoscopic (ICD-10-PCS; 2020-11-28)
PROC: 0UB98ZZ Excision of Uterus, Via Natural or Artificial Opening Endoscopic (ICD-10-PCS; principal; 2020-11-28 14:00)
PROC: 0UDB7ZX Extraction of Endometrium, Via Natural or Artificial Opening, Diagnostic (ICD-10-PCS; 2020-11-28 14:00)
DX: D25.0 Submucous leiomyoma of uterus (principal)
CPT/HCPCS: 84703; 88305-TC; 93005; 93010; 94760